=== PATIENT | female | born 1990 | race Caucasian/White ===

== ENCOUNTER 2024-02-26 14:22 | Observation (INO) | payer BC, SELFPAY ==
[2024-02-26 14:40] VITALS: BP 140/96; BMI 31.2
[2024-02-26 15:15] LABS: Hematocrit 35.4 % (37.0-47.0); Hemoglobin 12.5 g/dL (12.0-16.0); Mean Corp Hgb Conc. 35.3 g/dL (33.0-37.0); Mean Corpuscular Volume 82.1 fL (81.0-99.0); Mean Platelet Volume 10.9 fL (7.4-10.4); Platelet Count 340 10^3/uL (130-400); Red Blood Cell Count 4.31 10^6/uL (4.20-5.40); Red Cell Dist. Width 12.9 % (11.5-14.5); White Blood Cell Count 14.1 10^3/uL (4.8-10.8)
[2024-02-26 15:24] LABS: Urine Albumin Negative (Neg - Trace); Urine Bilirubin Negative (Negative); Urine Character Slightly Cloudy (Clear); Urine Color Yellow; Urine Glucose Negative (Negative); Urine Ketone Negative (Negative); Urine Leukocyte 1+ (Negative); Urine Nitrite Negative (Negative); Urine Occult Blood Negative (Negative); Urine Urobilinogen Negative (Neg - 1+)
[2024-02-26 15:28] LABS: ALT (SGPT) 20 U/L (0-35); AST (SGOT) 24 U/L (14-36); Albumin 3.6 g/dl (3.5-5.0); Alkaline Phosphatase 136 U/L (38-126); Blood Urea Nitrogen 6 mg/dl (7-17); Calcium 10.2 mg/dl (8.4-10.2); Carbon Dioxide 20 mmol/L (22-30); Chloride 106 mmol/L (98-107); Estimated Creatinine Clearance 121 ml/min; Glucose 77 mg/dl (70-99); Potassium 3.9 mmol/L (3.5-5.1); Sodium 134 mmol/L (135-145); Total Bilirubin 0.3 mg/dl (0.2-1.3); Total Protein 6.3 g/dl (6.3-8.2); eGFR > 60.00
[2024-02-26 15:42] LABS: Protein/creatinine Ratio 0.5; Urine Protein 15 mg/dl
[2024-02-26 15:57] LABS: Urine Squamous Cell >30 /LPF (Few)
[2024-02-26 16:00] LABS: Urine Bacteria Moderate (Negative)
== END 2024-02-26 16:30 | disposition home or self-care (01) ==
LOC: LDRP 14:22
PROVIDERS: ADMITTING PHYSICIAN Obstetrics & Gynecology
DX: O13.3 Gestational [pregnancy-induced] hypertension without significant proteinuria, third trimester (principal); Z3A.35 35 weeks gestation of pregnancy
CPT/HCPCS: 59025; 80053; 81003; 81015; 82570; 84156; 85027; G0378

== ENCOUNTER 2024-02-28 17:37 | Observation (INO) | payer BC, SELFPAY ==
[2024-02-28 17:49] VITALS: BP 136/87; BMI 31.2
[2024-02-28 18:09] LABS: Hematocrit 34.7 % (37.0-47.0); Hemoglobin 12.3 g/dL (12.0-16.0); Mean Corp Hgb Conc. 35.4 g/dL (33.0-37.0); Mean Corpuscular Hgb 29.1 pg (27.0-31.0); Mean Platelet Volume 11.2 fL (7.4-10.4); Platelet Count 315 10^3/uL (130-400); Red Blood Cell Count 4.23 10^6/uL (4.20-5.40); Red Cell Dist. Width 12.9 % (11.5-14.5); White Blood Cell Count 12.9 10^3/uL (4.8-10.8)
[2024-02-28 18:10] LABS: Urine Albumin Negative (Neg - Trace); Urine Bilirubin Negative (Negative); Urine Character Clear (Clear); Urine Color Straw; Urine Glucose Negative (Negative); Urine Ketone Negative (Negative); Urine Leukocyte Trace (Negative); Urine Nitrite Negative (Negative); Urine Occult Blood Negative (Negative); Urine Specific Gravity 1.005 (<1.030); Urine Urobilinogen Negative (Neg - 1+)
[2024-02-28] MEDS: TYLENOL 1000 MG PO (18:15)
[2024-02-28 18:25] LABS: Urine Mucus Few; Urine Red Blood Cell 0-2 /HPF (0-2); Urine Squamous Cell 16-20 /LPF (Few)
[2024-02-28 18:26] LABS: Urine Bacteria Few (Negative); Urine White Cell 26-30 /HPF (0-5)
[2024-02-28 18:29] LABS: ALT (SGPT) 21 U/L (0-35); AST (SGOT) 23 U/L (14-36); Albumin 3.5 g/dl (3.5-5.0); Alkaline Phosphatase 128 U/L (38-126); Blood Urea Nitrogen 5 mg/dl (7-17); Calcium 10.2 mg/dl (8.4-10.2); Carbon Dioxide 24 mmol/L (22-30); Chloride 106 mmol/L (98-107); Estimated Creatinine Clearance 121 ml/min; Glucose 84 mg/dl (70-99); Potassium 4.1 mmol/L (3.5-5.1); Sodium 134 mmol/L (135-145); Total Bilirubin 0.2 mg/dl (0.2-1.3); Total Protein 6.2 g/dl (6.3-8.2); Uric Acid 6.5 mg/dl (2.5-6.2); eGFR > 60.00
[2024-02-28 18:37] LABS: Protein/creatinine Ratio 0.8; Urine Protein 15 mg/dl
[2024-02-28] MEDS: CELESTONE SOLUSPAN 2 MG IM (19:12)
== END 2024-02-28 19:38 | disposition home or self-care (01) ==
LOC: LDRP 17:37
PROVIDERS: ADMITTING PHYSICIAN Obstetrics & Gynecology
DX: O14.03 Mild to moderate pre-eclampsia, third trimester (principal); Z3A.35 35 weeks gestation of pregnancy
CPT/HCPCS: 96372; J0702; 80053; 81003; 81015; 82570; 84156; 84550; 85027; 87070; 87086; G0378

== ENCOUNTER 2024-02-29 16:58 | Observation (INO) | payer BC, SELFPAY ==
[2024-02-29 17:15] VITALS: BP 134/77; BMI 31.2
[2024-02-29] MEDS: CELESTONE SOLUSPAN 2 MG IM (17:56)
== END 2024-02-29 18:00 | disposition home or self-care (01) ==
LOC: PNTC-IN 16:58
PROVIDERS: ADMITTING PHYSICIAN Obstetrics & Gynecology
DX: O14.03 Mild to moderate pre-eclampsia, third trimester (principal); Z3A.35 35 weeks gestation of pregnancy
CPT/HCPCS: 96372; J0702; 76816; G0378

== ENCOUNTER → 2024-03-06 08:47 | Outpatient (REF) | payer BC, SELFPAY | LOC: PNTC 08:47 | PROVIDERS: ATTENDING PHYSICIAN Obstetrics & Gynecology | DX: O14.03 Mild to moderate pre-eclampsia, third trimester (principal) | CPT/HCPCS: 36415; 59025; 76815 ==

== ENCOUNTER 2024-03-11 19:19 | Inpatient (IN) | payer BC, SELFPAY ==
[2024-03-11 19:33] VITALS: BP 134/88; BMI 31.4
[2024-03-11 20:38] LABS: % Basophils 0.2 % (0-2); % Eosinophils 0.6 % (0-6); % Immature Granulocytes 0.6 % (0-0.5); % Lymphocytes 21.7 % (20.5-51.1); % Monocytes 6.8 % (1.7-9.3); % Neutrophils 70.1 % (42.2-75.2); Absolute Eosinophils 0.1 10^3/uL (0-0.7); Absolute Immature Granulocytes 0.1 10^3/uL (0-0.05); Absolute Lymphocytes 3.5 10^3/uL (1.2-3.4); Absolute Monocytes 1.1 10^3/uL (0.1-0.6); Absolute Neutrophils 11.4 10^3/uL (1.4-6.5); Hematocrit 36.9 % (37.0-47.0); Hemoglobin 12.6 g/dL (12.0-16.0); Mean Corp Hgb Conc. 34.1 g/dL (33.0-37.0); Mean Corpuscular Hgb 29.2 pg (27.0-31.0); Mean Corpuscular Volume 85.4 fL (81.0-99.0); Mean Platelet Volume 11.9 fL (7.4-10.4); Nucleated Red Blood Cells % 0 %; Platelet Count 312 10^3/uL (130-400); Red Blood Cell Count 4.32 10^6/uL (4.20-5.40); Red Cell Dist. Width 13.3 % (11.5-14.5); White Blood Cell Count 16.3 10^3/uL (4.8-10.8)
[2024-03-11] MEDS: CYTOTEC 50 MICROGRAM VAG (20:47)
[2024-03-11 20:53] LABS: ALT (SGPT) 18 U/L (0-35); AST (SGOT) 22 U/L (14-36); Albumin 3.8 g/dl (3.5-5.0); Alkaline Phosphatase 142 U/L (38-126); Blood Urea Nitrogen 12 mg/dl (7-17); Calcium 10.1 mg/dl (8.4-10.2); Carbon Dioxide 21 mmol/L (22-30); Chloride 101 mmol/L (98-107); Estimated Creatinine Clearance 104 ml/min; Glucose 96 mg/dl (70-99); Potassium 4.4 mmol/L (3.5-5.1); Sodium 132 mmol/L (135-145); Total Bilirubin 0.3 mg/dl (0.2-1.3); Total Protein 6.6 g/dl (6.3-8.2); eGFR > 60.00
[2024-03-11 21:19] LABS: Protein/creatinine Ratio 0.2; Urine Protein 14 mg/dl
[2024-03-11] MEDS: LR 1000 IV (23:01)
[2024-03-11] MEDS: BRETHINE 250 MCG SC (23:30)
[2024-03-12] MEDS: LR 1000 IV ×2 (06:28→22:15)
[2024-03-12] MEDS: PITOCIN 30 UNITS/NSS 500 ML IV (09:24)
[2024-03-13] MEDS: SUBLIMAZE 100 MCG EPIDURAL (01:39)
[2024-03-13] MEDS: FENTANYL/BUPIVACAINE 100 EPIDURAL ×2 (01:39→09:14)
[2024-03-13] MEDS: LR 1000 IV ×3 (03:02→09:19)
[2024-03-13] MEDS: CYTOTEC 800 MCG RECTAL (11:26)
[2024-03-13] MEDS: MOTRIN 600 MG PO (23:14)
[2024-03-13] MEDS: TYLENOL 650 MG PO (23:14)
[2024-03-14 05:03] LABS: Hematocrit 30.6 % (37.0-47.0); Hemoglobin 10.3 g/dL (12.0-16.0); Mean Corp Hgb Conc. 33.7 g/dL (33.0-37.0); Mean Corpuscular Hgb 29.6 pg (27.0-31.0); Mean Corpuscular Volume 87.9 fL (81.0-99.0); Mean Platelet Volume 11.7 fL (7.4-10.4); Platelet Count 199 10^3/uL (130-400); Red Blood Cell Count 3.48 10^6/uL (4.20-5.40); Red Cell Dist. Width 13.7 % (11.5-14.5); White Blood Cell Count 22.2 10^3/uL (4.8-10.8)
[2024-03-14] MEDS: TYLENOL 650 MG PO ×2 (11:55→23:29)
[2024-03-14] MEDS: SENOKOT-S 1 TABLET PO (11:56)
[2024-03-14] MEDS: MOTRIN 600 MG PO ×2 (11:56→23:28)
[2024-03-14] MEDS: FEOSOL 325 MG PO (12:06)
[2024-03-14] MEDS: PRENATAL PLUS 1 TABLET PO (12:06)
[2024-03-15] MEDS: FEOSOL 325 MG PO (08:02)
[2024-03-15] MEDS: MOTRIN 600 MG PO (08:02)
[2024-03-15] MEDS: SENOKOT-S 1 TABLET PO (08:02)
[2024-03-15] MEDS: PRENATAL PLUS 1 TABLET PO (08:02)
[2024-03-15] MEDS: TYLENOL 650 MG PO (08:12)
[2024-03-15 14:47] LABS: Syphilis/T. pallidum Ab Reflex Negative (Negative)
== END 2024-03-15 12:50 | disposition home or self-care (01) | DRG 807 ==
LOC: LDRP 19:19
PROVIDERS: Obstetrics & Gynecology; ADMITTING PHYSICIAN Obstetrics & Gynecology; FAMILY PHYSICIAN Obstetrics & Gynecology
PROC: 3E0P7VZ Introduction of Hormone into Female Reproductive, Via Natural or Artificial Opening (ICD-10-PCS; 2024-03-11)
PROC: 0U7C7ZZ Dilation of Cervix, Via Natural or Artificial Opening (ICD-10-PCS; 2024-03-12)
PROC: 3E033VJ Introduction of Other Hormone into Peripheral Vein, Percutaneous Approach (ICD-10-PCS; 2024-03-12)
PROC: 10E0XZZ Delivery of Products of Conception, External Approach (ICD-10-PCS; 2024-03-13)
PROC: 0KQM0ZZ Repair Perineum Muscle, Open Approach (ICD-10-PCS; 2024-03-13)
PROC: 10907ZC Drainage of Amniotic Fluid, Therapeutic from Products of Conception, Via Natural or Artificial Opening (ICD-10-PCS; 2024-03-13)
DX: O14.04 Mild to moderate pre-eclampsia, complicating childbirth (principal); Z37.0 Single live birth; Z3A.37 37 weeks gestation of pregnancy; O75.89 Other specified complications of labor and delivery; O70.1 Second degree perineal laceration during delivery
CPT/HCPCS: 88307; 80053; 82570; 84156; 85025; 85027; 86780; 86850; 86900; 86901